=== PATIENT | male | born 1985 | race Caucasian/White ===

== ENCOUNTER 2022-11-18 19:09 | Emergency (ER) | payer OTHER | END 2022-11-18 21:25 | disposition home or self-care (01) | LOC: MW.ED 19:09 | DX: M79.601 Pain in right arm (principal); Z88.0 Allergy status to penicillin; W18.30XA Fall on same level, unspecified, initial encounter | CPT/HCPCS: 73090-26-RT; 73090-RT; 73110-26-RT; 73110-RT; 99283 ==

== ENCOUNTER 2024-11-26 15:05 | Day surgery (SDC) | payer BC ==
[2024-11-26 15:28] LABS: BASOPHILS ABSOLUTE AUTO 0.04 K/uL (0.00-0.20); BASOPHILS PERCENT AUTO 0.3 % (0.0-1.0); EOSINOPHILS ABSOLUTE AUTO 0.17 K/uL (0.00-0.45); EOSINOPHILS PERCENT AUTO 1.1 % (0.0-6.0); HEMATOCRIT 42.5 % (42.0-52.0); HEMOGLOBIN 14.9 g/dL (14.0-18.0); IMMATURE GRAN ABSOLUTE AUTO 0.06 K/uL (0.00-0.05); IMMATURE GRAN PERCENT AUTO 0.4 % (0.0-0.4); LYMPHOCYTES ABSOLUTE AUTO 1.55 K/uL (1.00-4.80); LYMPHOCYTES PERCENT AUTO 9.8 % (24.0-44.0); MEAN CORPUSCULAR HEMOGLOBIN 30.1 pg (28.0-32.0); MEAN CORPUSCULAR HGB CONC 35.1 g/dL (32.0-36.0); MEAN CORPUSCULAR VOLUME 85.9 fL (83.0-99.0); MONOCYTES ABSOLUTE AUTO 0.96 K/uL (0.00-0.80); NEUTROPHILS ABSOLUTE AUTO 13.11 K/uL (1.80-7.70); NEUTROPHILS PERCENT AUTO 82.4 % (41.0-71.0); PLATELET COUNT,PLT 236 K/uL (150-400); RED BLOOD CELL COUNT 4.95 M/uL (4.52-5.90); WHITE BLOOD CELL COUNT,WBC 15.89 K/uL (3.9-11.3)
[2024-11-26 15:58] LABS: A/G RATIO 1.5 (0.9-1.6); ALANINE AMINOTRANSFERASE,ALT 29 IU/L (14-63); ALBUMIN 4.5 g/dL (3.4-5.0); ALKALINE PHOSPHATASE 47 U/L (46-116); ASPARTATE AMNIOTRANSFERASE,AST 20 IU/L (15-37); BILIRUBIN TOTAL 0.7 mg/dL (0.2-1.0); BLOOD UREA NITROGEN,BUN 14 mg/dL (7.0-18.0); CALCIUM 9.2 mg/dL (8.5-10.1); CARBON DIOXIDE,CO2 28.5 mmol/L (21.0-32.0); CHLORIDE,CL 100 mmol/L (98-107); CREATININE 0.9 mg/dL (0.8-1.3); GLUCOSE RANDOM 100 mg/dL (74-106); LIPASE 27 U/L (16-77); POTASSIUM,K 3.8 mmol/L (3.5-5.1); PROTEIN TOTAL,TP 7.6 g/dL (6.4-8.2); SODIUM,NA 136 mmol/L (136-148)
[2024-11-26 16:00] LABS: ESTIMATED GFR 111 mL/min (>60)
[2024-11-26] MEDS ORDERED: Naloxone 0.4 MG/ML SDV IVPUSH PRN ×2 (16:33→19:49)
[2024-11-26] MEDS: Sodium Chloride 0.9% 1,000 ML IV ONE (16:47)
[2024-11-26] MEDS: fentaNYL 50 MCG/ML SDV IVPUSH ONE (16:48)
[2024-11-26] MEDS: Metoclopramide 10 MG/2 ML SDV IVPUSH ONE (16:48)
[2024-11-26 17:00] LABS: APPEARANCE,URINE CLEAR; BILIRUBIN,URINE NEGATIVE (NEGATIVE); COLOR,URINE YELLOW; GLUCOSE,URINE NEGATIVE (NEGATIVE); KETONES,URINE 15 mg/dL (NEGATIVE); LEUKOCYTE ESTERASE,URINE NEGATIVE (NEGATIVE); NITRITE,URINE NEGATIVE (NEGATIVE); OCCULT BLOOD,URINE NEGATIVE (NEGATIVE); PH,URINE 6.5 (5.0-8.0); PROTEIN,URINE NEGATIVE (NEGATIVE); UROBILINOGEN,URINE 0.2 EU/dL (<2.0)
[2024-11-26] MEDS: Iopamidol 755 MG/ML 500 ML Multipack Bottle IVPUSH STA (17:20)
[2024-11-26 17:30] LABS: LACTIC ACID 0.5 mmol/L (0.4-2.0)
[2024-11-26] MEDS ORDERED: Sugammadex Sodium 200 MG/2 ML VIAL IV ONE (19:35)
[2024-11-26] MEDS ORDERED: Ondansetron 4 MG/2 ML SDV ONE (19:35)
[2024-11-26] MEDS ORDERED: Lidocaine 2% 5 ML SDV ONE (19:35)
[2024-11-26] MEDS ORDERED: Rocuronium Bromide 50 MG/5 ML Syringe ONE (19:35)
[2024-11-26] MEDS ORDERED: Scopalamine 1mg/3day Transdermal Patch ONE (19:35)
[2024-11-26] MEDS ORDERED: Dexamethasone 4 MG/ML 5 ML MDV ONE (19:35)
[2024-11-26] MEDS ORDERED: dexmedeTOMIDine HCl 200 MCG/2 ML SDV ONE (19:36)
[2024-11-26] MEDS ORDERED: fentaNYL 100 MCG/2 ML SDV ONE (19:36)
[2024-11-26] MEDS ORDERED: Morphine 10 MG/ML SDV ONE (19:36)
[2024-11-26] MEDS ORDERED: Sodium Chloride 0.9% 20 ML ONE (19:36)
[2024-11-26] MEDS ORDERED: Bupivacaine 0.25% 30 ML SDV ONE (19:36)
[2024-11-26] MEDS ORDERED: Ropivacaine 0.5% 5 MG/ML 30 ML SDV ONE (19:36)
[2024-11-26] MEDS ORDERED: propofoL 1,000 MG/100 ML 100 ML ONE (19:36)
[2024-11-26] MEDS ORDERED: Magnesium Sulfate (4.06 MEQ/ML) 5 GM/10 ML SDV ONE (19:38)
[2024-11-26] MEDS: cefOXitin 2 GM in Sodium Chloride 0.9% 50 ML IV ONE (19:40)
[2024-11-26] MEDS ORDERED: Lactated Ringers 1,000 ML IV SCH ×2 (19:45→21:30)
[2024-11-26] MEDS ORDERED: Metoclopramide 10 MG/2 ML SDV IVPUSH PRN (19:49)
[2024-11-26] MEDS ORDERED: Bupivacaine 0.5% 30 ML SDV ONE (19:49)
[2024-11-26] MEDS ORDERED: Phenylephrine HCl In 0.9% NaCl 1 MG/10 ML Syringe IVPUSH PRN (19:49)
[2024-11-26] MEDS ORDERED: Ondansetron 4 MG/2 ML SDV IVPUSH PRN (19:49)
[2024-11-26] MEDS ORDERED: fentaNYL 50 MCG/ML SDV IVPUSH PRN (19:49)
[2024-11-26] MEDS ORDERED: ceFAZolin 1 GM Vial ONE (19:49)
[2024-11-26] MEDS ORDERED: Morphine 2 MG/ML SYRINGE IVPUSH PRN ×2 (19:49→21:29)
[2024-11-26] MEDS ORDERED: Albuterol 0.083% 2.5 MG/3 ML Neb Soln NEB PRN (19:49)
[2024-11-26] MEDS ORDERED: propofoL 500 MG/50 ML 50 ML ONE (20:50)
[2024-11-26] MEDS: HYDROmorphone 1 MG/ML Syringe IVPUSH PRN (21:44)
[2024-11-26] MEDS: Acetaminophen/HYDROcodone 325-5 MG Tab PO PRN (23:53)
== END 2024-11-27 00:05 | disposition home or self-care (01) ==
LOC: MW.ED 15:05 → MW.SDS 19:29 → MW.MS 19:54 → MW.SDS 11-27 00:05
PROVIDERS: ATTEND Surgery
DX: K35.33 Acute appendicitis with perforation, localized peritonitis, and gangrene, with abscess (principal); Z88.0 Allergy status to penicillin; F17.290 Nicotine dependence, other tobacco product, uncomplicated
CPT/HCPCS: 36415; 44970; 74177; 80053; 81003; 83605; 83690; 83735; 85025; 87040; 87428; 96361; 96365; 96375; 99285; A9270; J0665; J0694; J1100; J1171; J2003; J2272; J2405; J2704; J2765; J2795; J3010; J3475; J7030; Q9967; 00840; 64486; J0690; J3490